=== PATIENT | female | born 1980 | race Caucasian/White ===

== ENCOUNTER 2017-04-20 15:12 | Emergency (ER) | payer OTHER ==
[~2017-04-20] VITALS: Ht 160 cm; Wt 65.0 kg
[~2017-04-20 15:12] MED LIST: CITA20TA4 PO; IMIT25TA PO; LOVA20TA PO; Z.0.BCPILL PO
[2017-04-20 15:16] VITALS: BP 135/78; PULSE 65; RESP 16; TEMP 97.9; O2SAT 97
[2017-04-20] MEDS ORDERED: NEUR300C PO (15:27)
[2017-04-20] MEDS ORDERED: ACYC800T PO (15:27)
[2017-04-20] MEDS ORDERED: EFFE150C PO (15:27)
[2017-04-20] MEDS ORDERED: LOVA20TA PO (15:27)
[2017-04-20] MEDS ORDERED: TRAZ50TA12 PO (15:27)
[2017-04-20] MEDS ORDERED: BIRTH CONTROL PILL (15:28)
[2017-04-20] MEDS ORDERED: BENZ100 PO (15:59)
[2017-04-20] MEDS ORDERED: PRED10 PO (15:59)
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
== END 2017-04-20 16:17 | disposition home or self-care (01) ==
LOC: PHEFT 15:12
DX: J40 Bronchitis, not specified as acute or chronic (principal); F32.9 Major depressive disorder, single episode, unspecified; E78.00 Pure hypercholesterolemia, unspecified; F17.200 Nicotine dependence, unspecified, uncomplicated; Z79.899 Other long term (current) drug therapy; Z88.1 Allergy status to other antibiotic agents
CPT/HCPCS: 99284

== ENCOUNTER 2017-08-13 15:56 | Emergency (ER) | payer OTHER ==
[~2017-08-13] VITALS: Ht 160 cm; Wt 69.1 kg
[~2017-08-13 15:56] MED LIST changes: +ACYC800T PO; +BENZ100 PO; +BIRTH CONTROL PILL; -CITA20TA4 PO; +EFFE150C PO; -IMIT25TA PO; +NEUR300C PO; +PRED10 PO; +TRAZ50TA12 PO; -Z.0.BCPILL PO
[2017-08-13 16:02] VITALS: BP 124/84; PULSE 78; RESP 16; TEMP 97.8; O2SAT 97
[2017-08-13] MEDS ORDERED: TRAZ100T10 PO (16:12)
[2017-08-13] MEDS ORDERED: LOVA10TA PO (16:12)
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
[2017-08-13] MEDS ORDERED: CEPHALEXIN MONOHYDRATE 500 MG CAP PO ONE (16:45)
[2017-08-13] MEDS ORDERED: SULFAMETHOXAZOLE-TRIMETHOPRIM DS 800-160 MG TAB PO ONE (16:45)
[2017-08-13] MEDS ORDERED: CEPH-460 PO (17:08)
[2017-08-13] MEDS ORDERED: BACT800T5 PO (17:08)
== END 2017-08-13 17:19 | disposition home or self-care (01) ==
LOC: PHEFT 15:56
DX: L02.414 Cutaneous abscess of left upper limb (principal)
CPT/HCPCS: 10060; 86403; 87070; 87186; 87205